=== PATIENT | male | born 1980 | race Caucasian/White ===

== ENCOUNTER 2016-09-08 18:02 | Emergency (ER) | payer BC, OTHER ==
[2016-09-08 19:28] VITALS: BP 128/82
[2016-09-08] MEDS ORDERED: Dexamethasone TAB* 4 MG PO ONE (19:38)
[2016-09-08] MEDS ORDERED: Methocarbamol TAB* 500 MG PO ONE (19:38)
[2016-09-08] MEDS ORDERED: oxyCODONE/Acetamin 5/325 MG* TAB PO ONE (19:38)
--- NOTE | 2016-09-08 20:05 | ED ---
Viki Vargas Anna, scribed for David Lacey MD on 09/08/16 at 1938 . 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 He describes the severity of his pain as 4/10. He denies fecal or urinary dysfunction. MHx significant for DVT, PE, factor 2 deficiency. 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 Respiratory History: Reports: Hx Pulmonary Embolism Infectious Disease History: No Infectious Disease History: Denies: Traveled Outside the [place] in Last 30 Days - Family History Known Family History: Positive: Other - Denies FHx of blood clots - Social History Occupation: Employed Full-time Alcohol Use: None Hx Substance Use: No Substance Use Type: Reports: None Hx Tobacco Use: No Smoking Status (MU): Never Smoked Tobacco Review of Systems Constitutional: Negative Eyes: Negative ENT: Negative Cardiovascular: Negative Respiratory: Negative Gastrointestinal: Negative Genitourinary: Negative Positive: Myalgia Skin: Negative Neurological: Negative Psychological: Normal All Other Systems Reviewed And Are Negative: Yes Physical Exam - Summary Physical Exam Summary: VITAL SIGNS: Reviewed. GENERAL: Patient is a well developed and nourished male who is lying comfortable in the stretcher. Patient is not in any acute respiratory distress. HEAD AND FACE: No signs of trauma. MOUTH: Oropharynx within normal limits. CHEST: Symmetric, no tenderness at palpation EXTREMITIES: FROM in all major joints, no edema, no cyanosis or clubbing. NEURO: Alert and oriented x 3. No acute neurological deficits. Speech is normal and follows commands. SKIN: Dry and warm Back: There is no ecchymosis, no deformity, positive paraspinal muscle tenderness in the thoraxic spine. No vertebral tenderness. No saddle anesthesia. Triage Information Reviewed: Yes Vital Signs On Initial Exam: Initial Vitals Temp Pulse Resp BP Pulse Ox 98.2 F 82 16 128/82 98 09/08/16 19:25 09/08/16 19:25 09/08/16 19:25 09/08/16 19:25 09/08/16 19:25 Vital Signs Reviewed: Yes Diagnostics - Vital Signs Vital Signs Temp Pulse Resp BP Pulse Ox 09/08/16 19:25 98.2 F 82 16 128/82 98 - Laboratory Lab Statement: Any lab studies that have been ordered have been reviewed, and results considered in the medical decision making process. Back Pain Course/Dx - Course Assessment/Plan: 36 y/o male presents with chief complaint of sudden onset of constant upper back pain that started after he lifted a patient and felt a pop in his back this evening. He describes the severity of his pain as 4/10. He denies fecal or urinary dysfunction. MHx significant for DVT, PE, factor 2 deficiency. P/E reveals paraspinal muscle tenderness in the left thoracic spine. No need for images at this time. If pain continues despite the medication then he is recommended to take x rays. Patient understands and agrees. He was given Percocet, Robaxin and Norflex. Patient was instructed to return to the emergency room immediately if any of the symptoms return or worsens. Patient understands and agrees. Plan of care was discussed with the patient and patient understands and agrees with the plan of care. All questions were answered at patient satisfaction. There were no further complaints or concerns. Patient was instructed to follow up with primary care physician within 3 to 5 days. Patient is hemodynamically stable. Patient is alert and oriented x 3. No acute neurological deficits - Diagnoses Differential Diagnosis/HQI/PQRI: Positive: Arthritis, Herniated Disc, Strain, Sprain Provider Diagnoses: Upper back pain on left side Discharge - Discharge Plan Condition: Stable Disposition: HOME Prescriptions: Methocarbamol TAB* [Robaxin TAB*] 500 mg PO TID #9 tab Methylprednisolone [Medrol Dosepak 4 MG*] 4 mg PO .SEE NAVEED INSTRUCTION #1 naveed oxyCODONE/Acetamin 5/325 MG* [Percocet 5/325 TAB*] 1 tab PO Q6H PRN #12 tab MDD max 4 tabs / day PRN Reason: Pain Patient Education Materials: Upper Back Exercises (GEN) Referrals: [facility] [Outside] Additional Instructions: Follow up with primary care physician within 48 hours. Return to the emergency department for changing or worsening symptoms. The documentation as recorded by the Viki marks Anna accurately reflects the service I personally performed and the decisions made by Abhijit willoughby Walter, MD.
== END 2016-09-08 20:03 | disposition home or self-care (01) ==
LOC: ED 18:02
DX: M54.9 Dorsalgia, unspecified (principal)
CPT/HCPCS: 99282; A9270-GY; J8540